=== PATIENT | female | born 1955 | race Asian ===

== ENCOUNTER 2017-01-03 15:33 | Emergency (ER) | payer BC ==
[~2017-01-03] VITALS: Ht 162.6 cm; Wt 77.3 kg
[2017-01-03] MEDS ORDERED: LISI-661 PO (15:58)
[2017-01-03] MEDS ORDERED: METO50 PO (15:58)
[2017-01-03] MEDS ORDERED: ASPI-556 PO (15:58)
[2017-01-03] MEDS ORDERED: ATOR40TA28 PO (15:58)
[2017-01-03 16:37] VITALS: BP 164/101
[2017-01-03] MEDS ORDERED: METOPROLOL SUCCINATE 50 MG ER TABLET PO ONE (17:00)
== END 2017-01-03 17:10 | disposition home or self-care (01) ==
LOC: EMS 15:36
DX: Z76.0 Encounter for issue of repeat prescription (principal); I10 Essential (primary) hypertension
CPT/HCPCS: 99282